=== PATIENT | female | born 1995 | race Two or more races ===

== ENCOUNTER 2019-03-22 15:33 | Emergency (ER) | payer SELFPAY ==
[2019-03-22 15:44] VITALS: BP 128/82; PULSE 91; TEMP 98.4; BMI 42.9
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
== END 2019-03-22 16:21 | disposition home or self-care (01) ==
LOC: JERFT 15:33
DX: S16.1XXA Strain of muscle, fascia and tendon at neck level, initial encounter (principal); V49.88XA Car occupant (driver) (passenger) injured in other specified transport accidents, initial encounter; Y92.414 Local residential or business street as the place of occurrence of the external cause; Y93.89 Activity, other specified; Y99.8 Other external cause status
CPT/HCPCS: 99281-25